=== PATIENT | male | born 1985 | race African-American/Black ===

== ENCOUNTER 2017-05-10 13:23 | Emergency (ER) | payer SELFPAY ==
[~2017-05-10] VITALS: Ht 182.9 cm; Wt 73.5 kg
[2017-05-10 13:28] VITALS: BP 134/92
[2017-05-10] MEDS ORDERED: CEFAZOLIN 1,000 MG IM ONE (15:30)
== END 2017-05-10 15:30 | disposition home or self-care (01) ==
LOC: ED 14:32
DX: S51.011A Laceration without foreign body of right elbow, initial encounter (principal); L03.113 Cellulitis of right upper limb; S60.222A Contusion of left hand, initial encounter; S60.221A Contusion of right hand, initial encounter; S09.90XA Unspecified injury of head, initial encounter; J45.909 Unspecified asthma, uncomplicated; F12.10 Cannabis abuse, uncomplicated; Y04.0XXA Assault by unarmed brawl or fight, initial encounter; Y93.89 Activity, other specified; Y92.89 Other specified places as the place of occurrence of the external cause; Y99.8 Other external cause status
CPT/HCPCS: 12032; 70450; 99284

== ENCOUNTER 2017-05-23 12:35 | Emergency (ER) | payer SELFPAY ==
[~2017-05-23] VITALS: Ht 185.4 cm; Wt 73.0 kg
[2017-05-23 12:42] VITALS: BP 118/72
== END 2017-05-23 12:58 | disposition home or self-care (01) ==
LOC: ED 12:39
DX: Z48.01 Encounter for change or removal of surgical wound dressing (principal); J45.909 Unspecified asthma, uncomplicated; F17.210 Nicotine dependence, cigarettes, uncomplicated
CPT/HCPCS: 99281